=== PATIENT | male | born 1955 | race Caucasian/White ===

== ENCOUNTER 2017-09-07 16:25 | Emergency (ER) | payer MEDICARE ==
[2017-09-07 16:34] VITALS: BP 163/79
[2017-09-07] MEDS ORDERED: A & D OINTMENT 5 GM PACKET TOP STA (16:51)
--- NOTE | 2017-09-07 16:51 | ED Physician Documentation ---
History of Present Illness - Stated complaint Stated Complaint: BILAT LEG REDNESS/SWELLING/WOUNDS - Chief complaint Chief Complaint: Ext Problem - History obtained from History obtained from: Patient, Family (daughter) - History of Present Illness Timing: Other (62-year-old gentleman with history of CHF, hypertension. He was hospitalized about 5 weeks ago down in [place] for renal failure. He was not dialyzed, just medically treated. It is unclear from his history why he had renal failure, we will try to get records. He was hospitalized for about 2- 1/2 weeks, and then in rehab for a week. And his daughter brought him up here where she lives to be able to check on him more closely. He presents with weeping cellulitis of both legs, left greater than right. It is not associated with fevers and his breathing is good.) Review of Systems Constitutional: denies: Fever, Chills Cardiac: denies: Chest pain / pressure, Palpitations Respiratory: denies: Dyspnea, Cough GI: denies: Abdominal Pain PD PAST MEDICAL HISTORY - Past Medical History Past Medical History: Yes Cardiovascular: Congestive heart failure, Hypertension Respiratory: COPD GI: Hepatitis : Renal insuffiency - Past Surgical History Past Surgical History: Yes General: Cholecystectomy - Present Medications Home Medications: Ambulatory Orders Medication Instructions Recorded Confirmed Cephalexin [Keflex] 500 mg PO QID #40 capsule 09/07/17 Ferrous Sulfate 09/07/17 Furosemide 40 mg PO DAILY 09/07/17 Hydralazine HCl 100 mg PO TID 09/07/17 Labetalol HCl 600 mg PO BID 09/07/17 Lisinopril 20 mg PO DAILY 09/07/17 Nifedipine [Nifedipine ER] 90 mg PO DAILY 09/07/17 Omeprazole Magnesium 40 mg PO BID 09/07/17 Oxycodone HCl 09/07/17 Zolpidem Tartrate [Ambien] 09/07/17 - Allergies Allergies/Adverse Reactions: Allergies Allergy/AdvReac Type Severity Reaction Status Date / Time morphine Allergy Nausea Verified 09/07/17 16:35 - Social History Does the pt smoke?: No Smoking Status: Former smoker Does the pt drink ETOH?: Yes Does the pt have substance abuse?: No - POLST Patient has POLST: No PD ED PE NORMAL - Vitals Vital signs reviewed: Yes - General General: Alert and oriented X 3, No acute distress - Neck Neck: Supple, no meningeal sign, No bony TTP - Cardiac Cardiac: RRR, No murmur - Respiratory Respiratory: No respiratory distress, Clear bilaterally - Abdomen Abdomen: Non tender - Male Male : Pt declined - Rectal Rectal: Pt declined - Derm Derm: Normal color, Warm and dry - Extremities Extremities: Other (He has significant bilateral pitting pedal edema which he says is much better than when he was hospitalized, "these are half the size they were," he has venous stasis changes with bullae formation especially on the right leg, one was cultured during examination.) - Neuro Neuro: Alert and oriented X 3, Normal speech Results - Vitals Vitals: Vital Signs - 24 hr 09/07/17 16:30 Temperature 36.5 C Heart Rate 88 Respiratory 24 Rate Blood Pressure 163/79 H O2 Saturation 98 Oxygen O2 Source Room air - Labs Labs: Laboratory Tests 09/07/17 09/07/17 16:55 16:55 WBC 6.3 RBC 2.44 L Hgb 7.5 L Hct 22.4 L MCV 91.9 MCH 30.7 MCHC 33.4 RDW 17.1 H Plt Count 242 MPV 6.6 L Neut # BRAND MARKETING COORDINATOR Lymph # BRAND MARKETING COORDINATOR [place] # BRAND MARKETING COORDINATOR Eos # BRAND MARKETING COORDINATOR Baso # BRAND MARKETING COORDINATOR Absolute Nucleated RBC BRAND MARKETING COORDINATOR Total Counted 100 Band Neuts % (Manual) 1 Abnorm Lymph % (Manual) 0 Metamyelocytes % 1 H Nucleated RBC % BRAND MARKETING COORDINATOR Neutrophils # (Manual) 3.9 Lymphocytes # (Manual) 1.6 Monocytes # (Manual) 0.4 Eosinophils # (Manual) 0.2 Basophils # (Manual) 0.1 Differential Comment MANUAL DIFFERENTIAL Platelet Estimate NORMAL (130-450,000) Platelet Morphology NORMAL APPEARANCE RBC Morph Micro Appear 2+ HYPOCHROMASIA Sodium 136 Potassium 4.4 Chloride 110 Carbon Dioxide 19 L Anion Gap 7.0 BUN 32 H Creatinine 2.0 H Estimated GFR (MDRD) 34 L Glucose 98 Calcium 8.1 L Total Bilirubin 0.2 AST 24 ALT 13 Alkaline Phosphatase 93 Total Protein 5.9 L Albumin 2.5 L Globulin 3.4 Albumin/Globulin Ratio 0.7 L Lipase 25 PD MEDICAL DECISION MAKING - ED course ED course: 62-year-old gentleman with recent admission for renal failure and a GI bleed. Comes in because he is weeping cellulitis of both legs. His legs were bandaged and he was put on Keflex. A culture was done. His hemoglobin was noted to be 7.5. I recommended a rectal exam, he refused, he says that would just put him back in the hospital, he understands he is probably bleeding. But he is very frustrated by all of the time in the hospital recently and really does not want to come in again. We came to the middle ground that we would do repeat labs as an outpatient on Monday. I gave him an outpatient lab requisition for this. Departure - Departure Disposition: Home, Self Care Clinical Impression: Cellulitis Qualifiers: Site of cellulitis: extremity Site of cellulitis of extremity: lower extremity Laterality: unspecified laterality Qualified Code(s): L03.119 - Cellulitis of unspecified part of limb Pain in extremity Qualifiers: Extremity pain location: lower extremity Laterality: bilateral Qualified Code(s ): M79.604 - Pain in right leg Anemia Qualifiers: Iron deficiency anemia type: chronic blood loss Condition: Good Record reviewed to determine appropriate education?: Yes Instructions: Cellulitis Dc Prescriptions: Cephalexin [Keflex] 500 mg PO QID #40 capsule Comments: Repeat labs on Monday, go to the hospital dental front office assistant and use the lab requisition I gave you. Return if worsening in the meantime. Discharge Date/Time: 09/07/17 18:13
[2017-09-07 17:03] LABS: BASOPHILS % (AUTO) 1.3 %; EOSINOPHILS % (AUTO) 2.6 %; HGB - HEMOGLOBIN 7.5 g/dL (14.0-18.0); LYMPHOCYTES % (AUTO) 21.8 %; MEAN CORPUSCULAR HEMOGLOBIN 30.7 pg (27.0-31.0); MEAN CORPUSCULAR HGB CONC 33.4 g/dL (32.0-36.0); MEAN CORPUSCULAR VOLUME 91.9 fL (80.0-94.0); MEAN PLATELET VOLUME 6.6 fL (7.4-11.4); MONOCYTES % (AUTO) 7.9 %; NEUTROPHILS % (AUTO) 66.4 %; PLT - PLATELET COUNT 242 10^3/uL (130-450); RED BLOOD COUNT 2.44 10^6/uL (4.70-6.10); RED CELL DISTRIBUTION WIDTH 17.1 % (12.0-15.0); WHITE BLOOD COUNT 6.3 x10^3/uL (4.8-10.8)
[2017-09-07 17:06] LABS: ABNORMAL LYMPHS % (MANUAL) 0 %
[2017-09-07 17:12] LABS: ALBUMIN 2.5 g/dL (3.2-5.5); ALBUMIN/GLOBULIN RATIO 0.7 (1.0-2.2); BILIRUBIN,TOTAL 0.2 mg/dL (0.2-1.0); CALCIUM 8.1 mg/dL (8.5-10.3); TOTAL PROTEIN 5.9 g/dL (6.7-8.2)
[2017-09-07] MEDS ORDERED: cephALEXin 250 MG CAPSULE PO STA (17:58)
[2017-09-07] MEDS ORDERED: oxyCODONE 5 MG TABLET PO STA (17:58)
[2017-09-07 19:51] LABS: BAND NEUTROPHILS % (MANUAL) 1 %; BASOPHILS # (MANUAL) 0.1 10^3/uL (0-0.1); BASOPHILS % (MANUAL) 1 %; EOSINOPHILS # (MANUAL) 0.2 10^3/uL (0-0.7); LYMPHOCYTES # (MANUAL) 1.6 10^3/uL (1.5-3.5); LYMPHOCYTES % (MANUAL) 26 %; METAMYELOCYTES % (MANUAL) 1 %; MONOCYTES # (MANUAL) 0.4 10^3/uL (0.0-1.0); NEUTROPHILS # (MANUAL) 3.9 10^3/uL (1.5-6.6); NEUTROPHILS % (MANUAL) 61 %
[2017-09-07 19:53] LABS: DIFFERENTIAL COMMENT MANUAL DIFFERENTIAL; PLATELET ESTIMATE, MANUAL NORMAL (130-450,000) (NORMAL); PLATELET MORPHOLOGY NORMAL APPEARANCE (NORMAL)
--- NOTE | 2017-09-09 18:09 | ED Physician Documentation ---
ED Addendum - Addendum Addendum: 09/09/17 18:09 Labs from today reviewed with patient and his daughter. Patient doing well. Will follow up with PCP on 09/18/17
== END 2017-09-07 18:13 | disposition home or self-care (01) ==
LOC: EDSEX → ED 16:25
DX: L03.116 Cellulitis of left lower limb (principal); L03.115 Cellulitis of right lower limb; M79.604 Pain in right leg; D50.0 Iron deficiency anemia secondary to blood loss (chronic); Z87.19 Personal history of other diseases of the digestive system; I10 Essential (primary) hypertension; Z87.891 Personal history of nicotine dependence; R60.0 Localized edema; R23.8 Other skin changes
CPT/HCPCS: 36415; 80053; 83690; 85025; 87070; 87181; 87205; 99283; A9270

== ENCOUNTER 2017-09-09 16:30 | Outpatient (CLI) | payer MEDICARE ==
[2017-09-09 16:53] LABS: HGB - HEMOGLOBIN 7.4 g/dL (14.0-18.0); MEAN CORPUSCULAR HEMOGLOBIN 30.2 pg (27.0-31.0); MEAN CORPUSCULAR HGB CONC 32.2 g/dL (32.0-36.0); MEAN CORPUSCULAR VOLUME 93.9 fL (80.0-94.0); MEAN PLATELET VOLUME 7.3 fL (7.4-11.4); RED BLOOD COUNT 2.44 10^6/uL (4.70-6.10); RED CELL DISTRIBUTION WIDTH 17.4 % (12.0-15.0); WHITE BLOOD COUNT 6.2 x10^3/uL (4.8-10.8)
[2017-09-09 17:10] LABS: CALCIUM 7.9 mg/dL (8.5-10.3); CREATININE 2.3 mg/dL (0.6-1.2)
== END 2017-09-09 16:31 | disposition home or self-care (01) ==
LOC: LAB 16:30
PROVIDERS: ATTEND Emergency Medicine
DX: D64.9 Anemia, unspecified (principal); K92.2 Gastrointestinal hemorrhage, unspecified
CPT/HCPCS: 80048

== ENCOUNTER 2017-09-26 00:50 | Outpatient (CLI) | payer MEDICARE | END 2017-09-26 00:51 | disposition EMS.NT | LOC: EDSEX → EMS 00:50 | PROVIDERS: ATTEND Surgery | DX: Z03.89 Encounter for observation for other suspected diseases and conditions ruled out (principal); W01.0XXA Fall on same level from slipping, tripping and stumbling without subsequent striking against object, initial encounter; Y92.008 Other place in unspecified non-institutional (private) residence as the place of occurrence of the external cause ==

== ENCOUNTER 2017-09-28 11:42 | Outpatient (CLI) | payer MEDICARE | END 2017-09-28 11:43 | disposition critical access hospital (66) | LOC: EMS 11:42 | PROVIDERS: ATTEND Surgery | DX: I46.9 Cardiac arrest, cause unspecified (principal) | CPT/HCPCS: A0425; A0433 ==

== ENCOUNTER 2017-09-28 12:10 | Emergency (ER) | payer MEDICARE ==
[2017-09-28] MEDS ORDERED: CALCIUM CHLORIDE ABBOJECT 1000MG/10 ML SYRINGE IVP ONE (12:11)
[2017-09-28] MEDS ORDERED: SODIUM BICARBONATE ABBOJECT 50 MEQ/50 ML SYRINGE IVP ONE (12:11)
[2017-09-28] MEDS ORDERED: CALCIUM GLUCONATE 1000 MG/10 ML VIAL ONE (12:43)
[2017-09-28 12:49] LABS: BASOPHILS % (AUTO) 0.6 %; EOSINOPHILS % (AUTO) 0.4 %; HGB - HEMOGLOBIN 7.2 g/dL (14.0-18.0); INR 1.5 (0.8-1.2); LYMPHOCYTES % (AUTO) 26.3 %; MEAN CORPUSCULAR HEMOGLOBIN 30.9 pg (27.0-31.0); MEAN CORPUSCULAR HGB CONC 29.4 g/dL (32.0-36.0); MEAN CORPUSCULAR VOLUME 105.3 fL (80.0-94.0); MEAN PLATELET VOLUME 7.3 fL (7.4-11.4); MONOCYTES % (AUTO) 2.7 %; PLT - PLATELET COUNT 184 10^3/uL (130-450); RED BLOOD COUNT 2.34 10^6/uL (4.70-6.10); WHITE BLOOD COUNT 14.6 x10^3/uL (4.8-10.8)
[2017-09-28 12:50] LABS: ABNORMAL LYMPHS % (MANUAL) 0 %
--- NOTE | 2017-09-28 12:59 | ED Physician Documentation ---
PD HPI CPR - Stated complaint Stated Complaint: CPR - History obtained from History obtained from: Family, EMS - History of Present Illness Timing - onset: Today (This is a 62-year-old gentleman who recently moved from [place] to live with his daughter. He has had a bad year with renal failure, CHF , hypertension and anemia. He was at home today and his daughter left and when she returned about an hour later he was pulseless sitting up in bed. EMS was summoned and found him to be in PEA. The briefly had a pulse en route, but lost it on the way here. Prior to arrival he had 5 rounds of epinephrine and also some atropine.) Review of Systems Unable to obtain: Intubated PD PAST MEDICAL HISTORY - Past Medical History Cardiovascular: Congestive heart failure, Hypertension Respiratory: COPD GI: Hepatitis : Renal insuffiency - Past Surgical History Past Surgical History: Yes General: Cholecystectomy - Present Medications Home Medications: Ambulatory Orders Medication Instructions Recorded Confirmed Cephalexin [Keflex] 500 mg PO QID #40 capsule 09/07/17 Ferrous Sulfate 09/07/17 Furosemide 40 mg PO DAILY 09/07/17 Hydralazine HCl 100 mg PO TID 09/07/17 Labetalol HCl 600 mg PO BID 09/07/17 Lisinopril 20 mg PO DAILY 09/07/17 Nifedipine [Nifedipine ER] 90 mg PO DAILY 09/07/17 Omeprazole Magnesium 40 mg PO BID 09/07/17 Oxycodone HCl 09/07/17 Zolpidem Tartrate [Ambien] 09/07/17 - Allergies Allergies/Adverse Reactions: Allergies Allergy/AdvReac Type Severity Reaction Status Date / Time morphine Allergy Nausea Verified 09/28/17 13:54 - Social History Does the pt smoke?: No Smoking Status: Former smoker Does the pt drink ETOH?: Yes Does the pt have substance abuse?: No - POLST Patient has POLST: No PD ED PE NORMAL - General General: Other (He is undergoing CPR and is pulseless, intubated with fixed and dilated pupils. He has some peripheral edema and chronic cellulitis of the legs.) - Respiratory Respiratory: Clear bilaterally - Neuro Eye Opening: None Motor: None Verbal: None GCS Score: 3 Results - Vitals Vitals: Vital Signs - 24 hr 09/28/17 09/28/17 09/28/17 12:10 14:23 14:24 Temperature 36.2 C L Blood Pressure 156/52 H 114/85 H Oxygen O2 Source Ambu bag - Labs Labs: Laboratory Tests 09/28/17 09/28/17 09/28/17 12:30 12:30 12:30 WBC RBC Hgb Hct MCV MCH MCHC RDW Plt Count MPV Neut # Lymph # [place] # Eos # Baso # Absolute Nucleated RBC Total Counted Band Neuts % (Manual) Abnorm Lymph % (Manual) Myelocytes % Nucleated RBC % Neutrophils # (Manual) Lymphocytes # (Manual) Monocytes # (Manual) Eosinophils # (Manual) Basophils # (Manual) Nucleated RBCs Differential Comment RBC Morph Micro Appear PT INR Sodium 138 Potassium 10.6 H* Chloride 116 H Carbon Dioxide 12 L* Anion Gap 10.0 BUN 58 H Creatinine 3.4 H Estimated GFR (MDRD) 18 L Glucose 66 L Lactic Acid 9.8 H* Calcium 9.7 Total Bilirubin 0.9 AST 596 H ALT 309 H Alkaline Phosphatase 103 Troponin I 0.44 Total Protein 5.7 L Albumin 2.4 L Globulin 3.3 Albumin/Globulin Ratio 0.7 L Lipase 38 09/28/17 09/28/17 12:30 12:30 WBC 14.6 H RBC 2.34 L Hgb 7.2 L Hct 24.6 L MCV 105.3 H MCH 30.9 MCHC 29.4 L RDW 18.0 H Plt Count 184 MPV 7.3 L Neut # Not Reportable Lymph # Not Reportable [place] # Not Reportable Eos # Not Reportable Baso # Not Reportable Absolute Nucleated RBC Not Reportable Total Counted 100 Band Neuts % (Manual) 4 Abnorm Lymph % (Manual) 0 Myelocytes % 1 H Nucleated RBC % Not Reportable Neutrophils # (Manual) 8.2 H Lymphocytes # (Manual) 5.8 H Monocytes # (Manual) 0.1 Eosinophils # (Manual) 0.1 Basophils # (Manual) 0.1 Nucleated RBCs 6 Differential Comment MANUAL DIFFERENTIAL RBC Morph Micro Appear 2+ MACROCYTOSIS PT 17.0 H INR 1.5 H Sodium Potassium Chloride Carbon Dioxide Anion Gap BUN Creatinine Estimated GFR (MDRD) Glucose Lactic Acid Calcium Total Bilirubin AST ALT Alkaline Phosphatase Troponin I Total Protein Albumin Globulin Albumin/Globulin Ratio Lipase Procedures - General procedure General procedure: Femoral arterial line placement: No consent was obtained given the emergent nature of the procedure. I was actually initially trying to cannulate the vein but the needle was in the artery and we used a 20-gauge catheter to cannulate this and took it up to the monitor. PD MEDICAL DECISION MAKING - ED course ED course: This is a 62-year-old gentleman who arrives pulseless undergoing CPR in a PEA that is a wide-complex bradycardia. He had multiple rounds of medications prior to arrival and this was continued here. Given his history of renal failure the possibility of hyperkalemia was entertained and in addition to epinephrine was also administered several rounds of sodium bicarbonate and calcium without return of pulses. The femoral A-line corroborated on pulse checks no pulse and he really did not have any significant cardiac motion on bedside ultrasound. The daughter was in agreement when the code was called at 12:50 PM. - Critical Care Time(min): 40 Time Includes: Direct patient care, Review records, Document care, Coordinate care, Family consult for tx dec Data interpretation: Labs Procedures excluded from critical care time: Arterial cannulation, CPR Departure - Departure Disposition: 20 Clinical Impression: Sudden cardiac Discharge Date/Time: 09/28/17 15:15
[2017-09-28] MEDS ORDERED: CALCIUM GLUCONATE 1000 MG/10 ML VIAL IVP STA (13:10)
[2017-09-28] MEDS ORDERED: CALCIUM CHLORIDE ABBOJECT 1000MG/10 ML SYRINGE IVP STA (13:10)
[2017-09-28] MEDS ORDERED: EPINEPHrine ABBOJECT 1 MG/10 ML SYRINGE IVP STA (13:10)
[2017-09-28] MEDS ORDERED: SODIUM BICARBONATE ABBOJECT 50 MEQ/50 ML SYRINGE IVP STA (13:10)
[2017-09-28 13:30] LABS: ALBUMIN 2.4 g/dL (3.2-5.5); ALBUMIN/GLOBULIN RATIO 0.7 (1.0-2.2); BILIRUBIN,TOTAL 0.9 mg/dL (0.2-1.0); CALCIUM 9.7 mg/dL (8.5-10.3); CREATININE 3.4 mg/dL (0.6-1.2); TOTAL PROTEIN 5.7 g/dL (6.7-8.2)
[2017-09-28 13:58] LABS: BAND NEUTROPHILS % (MANUAL) 4 %; BASOPHILS # (MANUAL) 0.1 10^3/uL (0-0.1); BASOPHILS % (MANUAL) 1 %; EOSINOPHILS # (MANUAL) 0.1 10^3/uL (0-0.7); LYMPHOCYTES # (MANUAL) 5.8 10^3/uL (1.5-3.5); LYMPHOCYTES % (MANUAL) 40 %; MONOCYTES # (MANUAL) 0.1 10^3/uL (0.0-1.0); MYELOCYTES % (MANUAL) 1 %; NEUTROPHILS # (MANUAL) 8.2 10^3/uL (1.5-6.6); NEUTROPHILS % (MANUAL) 52 %
[2017-09-28 14:00] LABS: DIFFERENTIAL COMMENT MANUAL DIFFERENTIAL
[2017-09-28 14:25] VITALS: BP 114/85
== END 2017-09-28 15:15 | disposition expired ==
LOC: ED 12:10
DX: I46.9 Cardiac arrest, cause unspecified (principal); I11.0 Hypertensive heart disease with heart failure; N19 Unspecified kidney failure; D64.9 Anemia, unspecified; K75.9 Inflammatory liver disease, unspecified; Z87.891 Personal history of nicotine dependence
CPT/HCPCS: 36415; 36556; 36620; 80053; 83605; 83690; 84484; 85025; 85610; 92950; 96374; 96375; 99285; 99291